=== PATIENT | male | born 1945 | race Caucasian/White ===

== ENCOUNTER → 2019-01-08 | Outpatient (CLI) | payer MEDICARE ==
[~2019-01-08] MED LIST: 00186-0370-20 IH; 00186-0372-20 IH; ADVIL200 MG PO; CARDURA 2MG2 MG PO; FERROUS SU325 MG/TAB PO; GLUCOSAMINE & C1 CA1 PO; IMODIUM 2MG CAPS2 MG PO; MULTIPLE VITAMI1 CAP PO; PRIL40 PO; PRILOSEC 20MG20 MG
== END ==
LOC: COL.PUL 07:44
DX: J44.9 Chronic obstructive pulmonary disease, unspecified (principal)

== ENCOUNTER 2020-01-25 10:05 | Inpatient (IN) | payer MEDICARE ==
[~2020-01-25] VITALS: Ht 193 cm; Wt 114.9 kg
[2020-01-25] VITALS (9 sets, daily range): BP systolic 96–146; BP diastolic 50–87; PULSE 50–91; TEMP 97.7–98.6
[2020-01-25] MEDS ORDERED: VITAMIN B COMPL1 SGL PO (10:35)
[2020-01-25] MEDS ORDERED: FIBERCON PO (10:35)
[2020-01-25] MEDS ORDERED: HYGROTON 2525 MG/TAB PO (10:36)
--- NOTE | 2020-01-25 14:25 | NUR ---
PATIENT ADMITED INTO ROOM 343 POST OP TURP. A&O. VSS. DENIES PAIN. DIOR TO DD WITH MOD AMOUNTS OF CLEAR PALE YELLOW URINE. CBI INFUSING AT MOD RATE. IV FLUIDS INFUSING INTO LEFT WRIST. NO C/O N/V. LIQUIDS AT BEDSIDE. HEAD TO TOE ASSESSMENT WNL. SCD'S TO BLE. ORIENTED TO ROOM. CALL LIGHT IN REACH. AT BEDSIDE.
--- NOTE | 2020-01-25 19:00 | NUR ---
PATIENT REPORTS HE FEELS LIKE HE MAY NEED TO VOID. DIOR DRAINGING SLOWLY WITH CBI INFUSING AT MOD RATE. URINE IS NOW BLOODY. IRRIGATED WITH 40CC AND WAS ABLE TO EASILY GET 40CC BACK OUT AND URINE RETURN. NO CLOTS NOTED. DIOR DRAINING WELL WITH RED URINE NOTED. CBI INFUSING AT MOD RATE AGAIN. CAMPGROUND CLEANING ATTENDANT TAKING OVER.
--- NOTE | 2020-01-25 21:00 | NUR ---
Pt taking fluids well, IVF capped. Denies pain. Has SL to left inner wrist, flushes well. Refuses Colace, did stand at bedside to ease lower back discomfort. Godoy cares provided after returning to bed.
[2020-01-26] VITALS (11 sets, daily range): BP systolic 86–142; BP diastolic 44–74; PULSE 80–101; TEMP 97.6–98.6
--- NOTE | 2020-01-26 03:18 | NUR ---
PT COMPLAINED OF FEELING FULL IN HIS BLADDER, HAND IRRIGATED, NO CLOTS RETURNED. DID DEFLATE DIOR BALLOON AND IRRIGATE, FLOW WAS GOOD, REINFLATED BALLOON. URINE REMAINS WILKINS RED. PT ALSO COMPLAINED OF DIZZINESS, STARTED IVF AT THIS TIME. B/P 111/65. AT THIS TIME DIOR IS DRAINING WELL. WILL MONITOR FOR CHANGES.
--- NOTE | 2020-01-26 05:00 | NUR ---
DIOR DRAINING LIGHT WATERMELON COLOR NOW. IVF CONTINUE PT REPORTS DIZZINESS WHEN SITTING UP. DENIES PAIN.
--- NOTE | 2020-01-26 08:47 | NUR ---
PT HAS CBI RUNNING. OUTPUT FRUIT PUNCH COLOR WITH FEW CLOTS. PT STATES NO PAIN AT THIS TIME. DIOR EMPTIED. IRRIGATION BAGS CHECKED. WILL CONTIUE TO MONITOR.
--- NOTE | 2020-01-26 10:45 | NUR ---
ordered to instill 250mls into bladder with clamped regalado, removed regalado, and measeure/observe the next 6 urinations. Pt updated on plan. NS instilled and regalado clamped. Regalado removed. Pt stood to use the urinal and became dizzy. Pt placed back in bed and boosted. BP checked and showing 114/62. still on floor and updated. IVF fluids restarted. Labs ordered. Pt instructed to call and not get up alone. Bedalarm active. Nurse aid notified. Lab notified. Will continue to monitor.
--- NOTE | 2020-01-26 11:13 | NUR ---
PT SAT UP SIDE OF BED TO USE THE URINAL. PT'S BP SUPINE WAS 130/73 BUT WHILE SITTING 89/67. PT ABLE TO VOIDE SMALL AMOUNT OF VERY BLOODY URINE. LAB BEDSIDE TO DRAW. BED ALARM REACTIVATED. WILL CONTINUE TO MONITOR.
[2020-01-26 12:27] LABS: CALCIUM 8.5 mg/dL (8.4-10.2); CREATININE, serum 1.15 (0.66-1.25); HEMOGLOBIN 10.3 g/dl (13.5-18.0); MEAN CELL VOLUME 107 fl (80.0-100.0); MEAN CORPUSCULAR HEMOGLOBIN 38 pg (27.0-31.0); MEAN CORPUSCULAR HGB CONC 35 g/dl (33.0-37.0); MEAN PLATELET VOLUME 10.8 fl (7.4-10.4); PLATELET COUNT 239 K/mm3 (130-400); POTASSIUM 3.3 mmol/L (3.4-5.0); RED BLOOD COUNT 2.73 M/mm3 (4.20-5.60); REDCELL DISTRIBUTION WIDTH-CV 14.1 % (11.5-14.5)
[2020-01-26 12:35] LABS: HEMATOCRIT 29.3 % (42.0-52.0)
--- NOTE | 2020-01-26 12:40 | NUR ---
SPOKE WITH REGARDING PT'S LABS AND ORTHOSTATIC HYPOTENTION. WILL GIVE 1L BOLUS OF NS. ALSO DISCUSSED PT HAS ONLY VOIDED ABOUT 100ML AFTER DIOR DC. WILL CONTINUE TO MONITOR.
--- NOTE | 2020-01-26 13:16 | NUR ---
Plan: To return home in [place] with Swathi . Assessment: SW met with patient about care plan. Patient reports that his Swathi supports him. Patient reports that his PCP is Dr. Spike Burrell. Patient reports that he has a physical next month. Patient shares that he obtains his medications from [facility]. Patient shares that he use a cane for mobility and a CPAP nightly. Patient's POA is , verbally. Patient reports that they carrasqu[place] not have a DPOA form but she knows his wishes. Patient denies having any need for home health services. Action: Educated on resources available to them. Will continue to follow care.
--- NOTE | 2020-01-26 15:45 | NUR ---
ORTHOSTATIC VITALS STILL POSITIVE. HR INCREASED FROM 85 SUPINE TO 111 WHILE STANDING. PT BECAME DIZZY WHILE STANDING. NOTIFIED. ORDERS RECEIVED TO START LR AT 65ML/HR. BLADDER SCAN PT IF HE BECOMES UNCOMFORTABLE. IF RESULT IS GREATER THAN 300 NOTIFY PHYSICIAN.
--- NOTE | 2020-01-26 16:43 | NUR ---
PT BLADDER SCANNED WITH A RESULT OF 363. PT STATES HE WANTS TO TRY AND VOIDE AGAIN AFTER DINNER. WILL BLADDER SCAN AGAIN AFTER AND WILL NOTIFY IF GREATER THAN 300ML.
--- NOTE | 2020-01-26 17:32 | NUR ---
BASSEM RAMON REGARDING PTS BLADDER SCAN RESULT OF 693. ORDER TO PLACE A 3 WAY 18F DIOR AND MANUALLY IRRIGATE. ORDER TO IRRIGATE PRN. IF IT BECOMES OCCLUDED OR LARGE NUMBER PLEASE NOTIFY HIM AND WE MIGHT HAVE TO START CBI.
--- NOTE | 2020-01-26 18:37 | NUR ---
[address] DIOR [address]ED[address] WITH BLOODY URINE RETURNED. DIOR MANUALLY IRRIGATED. NO CLOTS NOTED. DIOR DRAINED 950 GROSS BLODDY URINE. PT STATES HE FEEL BETTER. WILL CONTINUE TO MONITOR.
--- NOTE | 2020-01-26 20:30 | NUR ---
PT IN BED, HAS CPAP ON. DIOR DRAINING BLOODY URINE, DENIES FULLNESS IN BLADDER, CATHETER CARES PROVIDED. IVF INFUSING TO RIGHT AC, NO REDNESS OR SWELLING NOTED. WILL MONITOR FOR CHANGES.
[2020-01-27] VITALS (12 sets, daily range): BP systolic 95–159; BP diastolic 40–68; PULSE 71–92; TEMP 97.4–98.5
--- NOTE | 2020-01-27 05:30 | NUR ---
CATHETER HAS DRAINED BLOODY URINE THIS SHIFT. HAND IRRIGATED FOR RETURN OF MANY SMALL NON OBSTRUCTING CLOTS. PT DENIED FULLNESS IN HIS BLADDER AND CATHETER HAS DRAINED ALL NIGHT WITHOUT SPASMS OR PROBLEM.
--- NOTE | 2020-01-27 06:45 | NUR ---
RESTARTED CBI PER DR MCCABE ORDER. ORDERS FOR LAB AND NPO GIVEN WELL.
--- NOTE | 2020-01-27 07:00 | NUR ---
PT REPORTS FEELING LIKE HIS BLADDER IS FULL, HAND IRRIGATED FOR RETURN OF NUMEROUS SMALL CLOTS, FLOW RETURN AFTER IRRIGATING.
[2020-01-27 08:12] LABS: MEAN CELL VOLUME 108 fl (80.0-100.0); MEAN CORPUSCULAR HGB CONC 35 g/dl (33.0-37.0); MEAN PLATELET VOLUME 10.8 fl (7.4-10.4); PLATELET COUNT 188 K/mm3 (130-400); REDCELL DISTRIBUTION WIDTH-CV 14.3 % (11.5-14.5)
[2020-01-27 08:30] LABS: HEMATOCRIT 23.7 % (42.0-52.0); HEMOGLOBIN 8.3 g/dl (13.5-18.0); MEAN CORPUSCULAR HEMOGLOBIN 38 pg (27.0-31.0)
--- NOTE | 2020-01-27 08:35 | NUR ---
Patient noted to have minimal regalado output. Hand irrigation completed-clots retreived. Patietn bladder pressure relieved. Patietn remains Npo, Regalado care provided.
--- NOTE | 2020-01-27 09:15 | NUR ---
rounded. Orders obtained, plans for Or.
[2020-01-27 09:36] LABS: BAND 6 % (0-10); LYMPHOCYTE 6 % (20.0-51.0); NEUTROPHILS 82 % (42.0-75.2); PLATELET ESTIMATE NORMAL (NORMAL)
[2020-01-27 09:38] LABS: HYPOCHROMIA 1+
--- NOTE | 2020-01-27 19:30 | NUR ---
Patient has done well post operativly. Cbi yellow & clear some reddness noted after his walk in the halls, but it cleared nicely. Patient did have dyspnea with exertion. He reports this is his normal. Vss on room air. he has tolerated food, no n/v. He denies pain. Scds. Report to Monique night nurse
--- NOTE | 2020-01-27 22:00 | NUR ---
PT IN BED WITH CPAP ON. DIOR TO BSD WITH CBI RUNNING AT SLOW RATE, URINE IS YELLOW. CATHETER CARES PROVIDED. DENIES PAIN. OFFERS NO NEEDS AT THIS TIME.
[2020-01-28] VITALS: BP 134/94; PULSE 77; TEMP 98.8
[2020-01-28 04:59] VITALS: BP 112/51; PULSE 73; TEMP 98.6
--- NOTE | 2020-01-28 06:00 | NUR ---
Urine has remained yellow, CBI clamped.
[2020-01-28 06:23] LABS: MEAN CELL VOLUME 108 fl (80.0-100.0); MEAN CORPUSCULAR HGB CONC 35 g/dl (33.0-37.0); MEAN PLATELET VOLUME 10.6 fl (7.4-10.4); PLATELET COUNT 182 K/mm3 (130-400); RED BLOOD COUNT 2.07 M/mm3 (4.20-5.60); REDCELL DISTRIBUTION WIDTH-CV 14.3 % (11.5-14.5)
[2020-01-28 06:34] LABS: HEMATOCRIT 22.3 % (42.0-52.0); HEMOGLOBIN 7.7 g/dl (13.5-18.0); MEAN CORPUSCULAR HEMOGLOBIN 37 pg (27.0-31.0)
[2020-01-28 07:59] VITALS: BP 109/74; PULSE 65; TEMP 97.8
--- NOTE | 2020-01-28 10:15 | NUR ---
ESTELLE ROUNDED, SEE ORDERS FOR P&P. PATIENT PRIMED WITH 250CC OF CBI AND DIOR DC'D PER ORDERS. NOTED 1300CC OF CLEAR YELLOW URINE. PATIENT STARTED ON 6 CUP ROUTINE. WILL MONITOR.
--- NOTE | 2020-01-28 10:50 | NUR ---
PATIENT WAS ABLE TO VOID 400CC OF CLEAR YELLOW URINE POST DIOR REMOVAL WITHOUT DIFFICULTY.
[2020-01-28 12:06] VITALS: BP 123/47; PULSE 80; TEMP 97.5
--- NOTE | 2020-01-28 12:30 | NUR ---
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
--- NOTE | 2020-01-28 14:45 | NUR ---
PATIENT HAS COMPLETED 6 CUP ROUTINE. URINE IS CLEAR, THOMAS, AND WITHOUT CLOTS. PATIENT HAS NOT HAD ANY DIFFICULTY WITH VOIDING. AWAITING DISCHARGE FROM UROLOGY.
--- NOTE | 2020-01-28 16:00 | NUR ---
PATIENT DISCHARGING HOME VIA WC TO PERSONAL VEHICLE WITH . GAVE DISCHARGE INSTRUCTIONS, F/U APT AND ANSWERED QUESTIONS/CONCERNS. DC'D RIGHT AC IV, COVERED SITE WITH GAUZE & COBAN. PATIENT DRESSED AND PACKED FOR DISCHARGE.
== END 2020-01-28 16:00 | disposition home or self-care (01) | DRG 666 ==
LOC: SDCO 10:05 → SURG 14:25 → SDCO 01-27 09:55 → SURG 01-27 09:55
PROVIDERS: Urology; ADMIT Family Medicine
PROC: 0V508ZZ Destruction of Prostate, Via Natural or Artificial Opening Endoscopic (ICD-10-PCS; principal; 2020-01-27 10:15)
PROC: 0TCB8ZZ Extirpation of Matter from Bladder, Via Natural or Artificial Opening Endoscopic (ICD-10-PCS; 2020-01-27 10:15)
DX: R31.0 Gross hematuria (principal); D62 Acute posthemorrhagic anemia; N40.1 Benign prostatic hyperplasia with lower urinary tract symptoms; Z20.828 Contact with and (suspected) exposure to other viral communicable diseases; G47.33 Obstructive sleep apnea (adult) (pediatric); G43.909 Migraine, unspecified, not intractable, without status migrainosus; K21.9 Gastro-esophageal reflux disease without esophagitis; M19.90 Unspecified osteoarthritis, unspecified site
CPT/HCPCS: OP; J0690; J1100; J2250; J2405; J2704; J3010; J3480; J7030; J7120

== ENCOUNTER → 2020-03-06 | Outpatient (CLI) | payer MEDICARE ==
[~2020-03-06] MED LIST changes: +FIBERCON PO; +HYGROTON 2525 MG/TAB PO; +VITAMIN B COMPL1 SGL PO
== END ==
LOC: COL.PUL 02-28 08:00
DX: I08.1 Rheumatic disorders of both mitral and tricuspid valves (principal)

== ENCOUNTER → 2021-07-31 | Outpatient (CLI) | payer MEDICARE | LOC: COL.VAS 11:55 | DX: Z12.2 Encounter for screening for malignant neoplasm of respiratory organs (principal); J44.9 Chronic obstructive pulmonary disease, unspecified; Z87.891 Personal history of nicotine dependence ==

== ENCOUNTER 2023-02-25 13:00 | Inpatient (IN) | payer MEDICARE ==
[~2023-02-25] VITALS: Ht 193 cm; Wt 113.7 kg
[2023-03-15] VITALS (10 sets, daily range): BP systolic 112–153; BP diastolic 58–75; PULSE 63–80; TEMP 97.4–98
[2023-03-15] MEDS ORDERED: TRELEGY ELLIPT1 EACH IH (10:48)
[2023-03-15] MEDS ORDERED: VENTOLIN0.09 MG IH (10:48)
[2023-03-15] MEDS ORDERED: HYGROTON 2525 MG/TAB PO (10:49)
[2023-03-15] MEDS ORDERED: CLARITIN-D 10 M1 T24 PO (10:50)
[2023-03-15] MEDS ORDERED: PRILOTC (10:51)
[2023-03-15 11:22] LABS: HEMOGLOBIN 11.7 g/dl (13.5-18.0); MEAN CELL VOLUME 103 fl (80.0-100.0); MEAN CORPUSCULAR HEMOGLOBIN 37 pg (27-31); MEAN CORPUSCULAR HGB CONC 36 g/dl (33.0-37.0); PLATELET COUNT 276 K/mm3 (130-400); RED BLOOD COUNT 3.13 M/mm3 (4.20-5.60)
[2023-03-15 11:29] LABS: CALCIUM 9.9 mg/dL (8.4-10.2); CREATININE, serum 1.55 mg/dL (0.72-1.25); POTASSIUM 3.3 mmol/L (3.5-4.5)
[2023-03-15 11:34] LABS: HEMATOCRIT 32.1 % (42.0-52.0)
[2023-03-15 11:39] LABS: ANISOCYTOSIS 1+; BAND 15 % (0-10); EOSINOPHIL 1 % (0-4); LYMPHOCYTE 19 % (20.0-51.0); NEUTROPHILS 51 % (42.0-75.2); PLATELET ESTIMATE NORMAL (NORMAL)
[2023-03-15] MEDS ORDERED: COLACE 100100 MG/CAP PO (15:24)
[2023-03-15] MEDS ORDERED: NORCO 325 MG-51 TAB PO (15:24)
--- NOTE | 2023-03-15 16:15 | NUR ---
REPORT RECEIVED FROM PACU NURSE. PT UP TO FLOOR AT THIS TIME. PT RESTING IN BED WITH PAIN 2/10 IN ABDOMEN, VITALS STABLE, A/O X4, FAMILY AT BEDSIDE, 5 LAP SITES AND 1 INCISION CLEAN, DRY, INTACT, AND OPEN TO AIR. WILL CONTINUE TO MONITOR.
[2023-03-15] MEDS ORDERED: KLOR-CON 88 ME1 PO (16:33)
--- NOTE | 2023-03-15 20:30 | NUR ---
PT IN BED, IS ALERT AND ORIENTED X4. HAS INT TO LAC. DIOR TO BSD WITH TEA COLORED URINE, DRINKING WELL. ROBOTIC SITES X5 DRY/GLUED AND SMALL MIDLINE INCISION GLUED AND DRY. ABD DISTENDED, BOWEL SOUNDS NOTED. HAS AMBULATED IN HALLWAY WITH STAFF.
--- NOTE | 2023-03-15 22:24 | NUR ---
SCHEDULED ES TYLENOL GIVEN. PT HAS HOME CPAP ON.
[2023-03-16] VITALS (7 sets, daily range): BP systolic 111–127; BP diastolic 56–86; PULSE 81–84; TEMP 97.8–98.5
--- NOTE | 2023-03-16 04:20 | NUR ---
PT SLEEPING, URINE HAS CLEARED. DID NOT AWAKEN FOR ES TYLENOL.
--- NOTE | 2023-03-16 05:53 | NUR ---
SCHEDULED AM MED GIVEN. PT ASSISTED TO SIDE OF BED, COFFEE GIVEN. DIOR OUTPUT IMPROVED OVERNIGHT.
[2023-03-16 06:50] LABS: HEMOGLOBIN 11.4 g/dl (13.5-18.0)
[2023-03-16 06:51] LABS: HEMATOCRIT 32.2 % (42.0-52.0)
[2023-03-16 07:04] LABS: CALCIUM 9.6 mg/dL (8.4-10.2); CREATININE, serum 2.04 mg/dL (0.72-1.25); POTASSIUM 3.7 mmol/L (3.5-4.5)
--- NOTE | 2023-03-16 07:10 | NUR ---
Awake and alert. Denies pain and VSS. INT in left forearm CDI. Drinking fluids and ordered breakfast. Godoy catheter intact and draining clear yellow urine. Call light in reach.
--- NOTE | 2023-03-16 08:15 | NUR ---
pt resting comfortably in bed, tolerated breakfast. vss. pt denies pain. pt abdomen distended but soft, reports being distended "all the time." bowel sounds are active and pt reports passing gas. x5 lap and 1 midline incisions are cdi. regalado to dd w dark yellow urine output. encouraged pt to ambulate more, pt in agreement. no needs at this time. call light in reach.
--- NOTE | 2023-03-16 09:00 | NUR ---
Ambulated without complaints of pain or discomfort. Shift assessment completed, lung sounds clear bilaterally. Hypoactive bowels with minimal flatulence. Abdominal incisions x5 dry and intact with no redness. IV in left forearm CDI. Godoy catheter intact and draining clear yellow urine. Sitting with family and call light provided.
--- NOTE | 2023-03-16 10:20 | NUR ---
Initial visit; Patient thanked Ultrasonic Seaming Machine Operator for looking in on him and offering God's blessings. Ultrasonic Seaming Machine Operator wished him well.
--- NOTE | 2023-03-16 11:10 | NUR ---
Event Services Manager met with Patient and family at bedside to conduct Care Managment Assessment and discuss discharge plannning. Patient lives in [place], [place] wit his and is established with YARIEL Ferris for primary care. Patient is covered by [facility] and Anastasiia Machado for insurance. Purvi requests discharge medications be sent to [facility]. Patient endorses CPAP prior to admission and has on hand for use during admission. Nuvia reports independency with ADL/IADLs prior to admission and states that his DPOAHC is his . Purvi is anticipated to discharge home when medically ready. Discharge Plan: Home.
--- NOTE | 2023-03-16 13:15 | NUR ---
left ac INT discontinued. leg bag teaching provided to pt and family. discharge instructions given, all questions answered. escorted pt to personal vehicle by wheelchair.
== END 2023-03-16 13:15 | disposition home or self-care (01) | DRG 658 ==
LOC: SURG 03-15 07:30 → INPTSU 03-15 10:02 → SURG 03-15 10:02
PROVIDERS: ADMIT Urology
PROC: 0TB64ZZ Excision of Right Ureter, Percutaneous Endoscopic Approach (ICD-10-PCS; 2023-03-15)
PROC: 8E0W4CZ Robotic Assisted Procedure of Trunk Region, Percutaneous Endoscopic Approach (ICD-10-PCS; 2023-03-15)
PROC: 0TT04ZZ Resection of Right Kidney, Percutaneous Endoscopic Approach (ICD-10-PCS; principal; 2023-03-15 12:15)
DX: C65.1 Malignant neoplasm of right renal pelvis (principal); I10 Essential (primary) hypertension; J44.9 Chronic obstructive pulmonary disease, unspecified; G47.33 Obstructive sleep apnea (adult) (pediatric); K21.9 Gastro-esophageal reflux disease without esophagitis; D64.9 Anemia, unspecified; M19.90 Unspecified osteoarthritis, unspecified site; F32.A Depression, unspecified; G43.909 Migraine, unspecified, not intractable, without status migrainosus; J31.0 Chronic rhinitis; J84.10 Pulmonary fibrosis, unspecified; J43.9 Emphysema, unspecified; N40.1 Benign prostatic hyperplasia with lower urinary tract symptoms; R31.0 Gross hematuria; Z96.649 Presence of unspecified artificial hip joint; Z99.89 Dependence on other enabling machines and devices; Z88.0 Allergy status to penicillin; Z88.8 Allergy status to other drugs, medicaments and biological substances; Z98.52 Vasectomy status
CPT/HCPCS: A4314; J0690; J1100; J1170; J1650; J2405; J2704; J2795; J3010; J7120

== ENCOUNTER 2023-04-30 12:57 | Outpatient (RCR) | payer MEDICARE ==
[2023-04-30] VITALS (10 sets, daily range): BP systolic 121–147; BP diastolic 43–79; PULSE 68–83; TEMP 96.6–98.1
[~2023-04-30 12:57] MED LIST changes: +CLARITIN-D 10 M1 T24 PO; +COLACE 100100 MG/CAP PO; +KLOR-CON 88 ME1 PO; +KLOR-CON M1010 MEQ PO; +NORCO 325 MG-51 TAB PO; +PRILOTC; +TRELEGY ELLIPT1 EACH IH; +VENTOLIN0.09 MG IH
--- NOTE | 2023-04-30 13:29 | NUR ---
1305-Pt arrived from home for blood transfusion. PT is AXOX4. Pt is ambulating independently and is on RA. bedside. Pt has a Right chest infusaport. Pt and unsure of type of port or neddle size. 1320-Old charts reviewed. Port accessed with 1in needle. Labs drawn and sent down.
--- NOTE | 2023-04-30 17:40 | NUR ---
PATIENT AWAKE AND ALERT, SITTING UP IN RECLINER. 2ND UNIT OF BLOOD TRANSFUSING. RN IN ROOM FIRST 15MIN. PATIENT TOELRATING WELL, DENEIS ANY S/S OF TRANSFUSION REACTION. VSS. CALL LIGHT WITHIN REACH. PATIENTS AT BEDSIDE.
--- NOTE | 2023-04-30 20:00 | NUR ---
Second unit of blood transfused without complications. VS WNL. Pt is feeling well. Chest port was flushed. A repeat H&H will be drawn shortly.
[2023-04-30 20:43] LABS: HEMOGLOBIN 8.3 g/dl (13.5-18.0)
--- NOTE | 2023-04-30 20:43 | NUR ---
Repeat H&H was obtained. Port was flushed with 20 ml of NS and 2.5 ml of Heparin per order. Port was deaccessed and a dressing was placed over the site. No complications at the site noted. Pt was escorted out of the building by staff in a wheelchair and accompanied by his .
== END 2023-04-30 21:00 | disposition home or self-care (01) ==
LOC: EUO 12:57
PROVIDERS: Internal Medicine
DX: C65.1 Malignant neoplasm of right renal pelvis (principal); D64.9 Anemia, unspecified
CPT/HCPCS: J1644; J7050; P9016

== ENCOUNTER 2023-05-20 08:45 | Outpatient (RCR) | payer MEDICARE ==
[~2023-05-20] VITALS: Ht 193 cm; Wt 114.5 kg
[2023-05-20] VITALS (9 sets, daily range): BP systolic 132–152; BP diastolic 58–73; PULSE 63–68; TEMP 97.4–98.1
[2023-05-20] MEDS ORDERED: COLACE 100100 MG/CAP PO (09:33)
[2023-05-20] MEDS ORDERED: VITAMIN B COMPL1 SGL PO (09:34)
[2023-05-20] MEDS ORDERED: GLUCOSAMINE & C1 CA2 PO (09:35)
--- NOTE | 2023-05-20 13:15 | NUR ---
Port was flushed and deaccessed. Site covered with bandaid. Pt assisted out using isolation procedures to ED entrance. Pt tolerated transfusions without issue. He was free of complaints and respirations remained even and unlabored at discharge.
== END 2023-05-20 13:15 | disposition home or self-care (01) ==
LOC: EUO 08:45
DX: C65.1 Malignant neoplasm of right renal pelvis (principal); U07.1 COVID-19
CPT/HCPCS: J1644; J7050; P9040

== ENCOUNTER 2023-06-15 13:00 | Outpatient (RCR) | payer MEDICARE ==
[2023-06-15] VITALS (9 sets, daily range): BP systolic 122–150; BP diastolic 57–81; PULSE 70–78; TEMP 97.4–97.9
[~2023-06-15] VITALS: Ht 193 cm; Wt 117.0 kg
[~2023-06-15 13:00] MED LIST changes: +Acetaminophen 325 MG TAB PO SCH; +GLUCOSAMINE & C1 CA2 PO; +NS 250 ML IV SCH; +diphenhydrAMINE 25 MG CAP PO SCH
[2023-06-15] MEDS ORDERED: MOTRIN 200200 MG/TAB PO (13:21)
--- NOTE | 2023-06-15 14:47 | NUR ---
report given to Mackenzie MOONEY, pt up in chair, uses computer, no c/o
--- NOTE | 2023-06-15 17:28 | NUR ---
pt tolerated blood infusion well, vs remained within normal limits, port deaccessed and heparinized. pt assisted to main lobby via wheelchair and was free from acute concerns and complaints at time of discharge.
== END 2023-06-15 17:29 | disposition home or self-care (01) ==
LOC: EUO 13:00
DX: C65.1 Malignant neoplasm of right renal pelvis (principal)
CPT/HCPCS: J1644; J7050; P9040

== ENCOUNTER 2023-07-01 10:40 | Outpatient (RCR) | payer MEDICARE ==
[2023-07-01] VITALS (9 sets, daily range): BP systolic 110–154; BP diastolic 51–82; PULSE 69–79; TEMP 97.4–98.1
[~2023-07-01 10:40] MED LIST changes: -Acetaminophen 325 MG TAB PO SCH; +MOTRIN 200200 MG/TAB PO; -NS 250 ML IV SCH; -diphenhydrAMINE 25 MG CAP PO SCH
[2023-07-01] MEDS ORDERED: NS 250 ML IV SCH (12:00)
[2023-07-01] MEDS ORDERED: diphenhydrAMINE 25 MG CAP PO SCH (12:00)
[2023-07-01] MEDS ORDERED: Acetaminophen 325 MG TAB PO SCH (12:00)
[2023-07-01] MEDS ORDERED: STOOL SOFTENER100 M2 PO (14:05)
== END 2023-07-01 18:09 | disposition home or self-care (01) ==
LOC: EUO 10:40
DX: C65.1 Malignant neoplasm of right renal pelvis (principal); D64.9 Anemia, unspecified
CPT/HCPCS: J1644; J7050; P9040

== ENCOUNTER 2023-07-08 13:18 | Outpatient (RCR) | payer MEDICARE ==
[~2023-07-08] VITALS: Ht 193 cm; Wt 119.4 kg
[2023-07-08] VITALS (15 sets, daily range): BP systolic 102–164; BP diastolic 63–87; PULSE 67–82; TEMP 97.5–97.9
[~2023-07-08 13:18] MED LIST changes: +Acetaminophen 325 MG TAB PO SCH; +NS 250 ML IV SCH; +STOOL SOFTENER100 M2 PO; +diphenhydrAMINE 25 MG CAP PO SCH
--- NOTE | 2023-07-08 16:13 | NUR ---
This nurse was called into the pts room at 1555. Pt reported they noticed hives starting to form, they became itchy, and a rash formed. The platelets were stopped and the fluids were immediatley started. Blood bank was called about the reaction. The lab put in orders for a blood draw investigation and told the nurse to disconnect the platelets which were returned to blood bank. The reactions from the platelets were documented. Dr. Morales's office was notified of the reaction and orders were received for benadryl, solumederol, and once symptoms improved the pt was okay to discharge.
[2023-07-08] MEDS ORDERED: diphenhydrAMINE 50 MG/ML 1 ML VIAL IV ONE (16:30)
[2023-07-08] MEDS ORDERED: methylPREDNISolone Sod Succ 125 MG/2 ML VIAL IV ONE (16:30)
--- NOTE | 2023-07-08 17:06 | NUR ---
Checked on the pts symptoms about 30 mins after the benedryl and solumederol were given. Pt states they are feeling much better. Itching is more controlled, the hives that were present are no longer there, and the rash is no longer present. Discussed with the pt that we will monitor them for about 30 more minutes and if they are still feeling good we can discharge them home.
--- NOTE | 2023-07-08 17:45 | NUR ---
Checked on the pt at about 1725 to see how they were feeling. Stated they were feeling much better and ready to go. The rash and hives were still not present. Another set of vitals was taken and the Pts port was deaccessed after heparin was given. Pt exited the unit by wheelchair to wifes car.
== END 2023-07-08 17:29 | disposition home or self-care (01) ==
LOC: EUO 13:18
DX: C65.1 Malignant neoplasm of right renal pelvis (principal)
CPT/HCPCS: J1200; J1644; J2930; J7050; P9035; P9040

== ENCOUNTER 2024-01-02 22:22 | Inpatient (IN) | payer MEDICARE ==
[~2024-01-02] VITALS: Ht 193 cm; Wt 112.4 kg
[~2024-01-02 22:22] MED LIST changes: -Acetaminophen 325 MG TAB PO SCH; -NS 250 ML IV SCH; -diphenhydrAMINE 25 MG CAP PO SCH
[2024-01-02] MEDS ORDERED: NS 500 ML IV ONE ×2 (23:00→23:45)
[2024-01-02 23:06] LABS: MEAN CELL VOLUME 96 fl (80.0-100.0); MEAN CORPUSCULAR HGB CONC 34 g/dl (33.0-37.0); MEAN PLATELET VOLUME 9.6 fl (7.4-10.4); PLATELET COUNT 103 K/mm3 (130-400); RED BLOOD COUNT 2.87 M/mm3 (4.20-5.60); REDCELL DISTRIBUTION WIDTH-CV 14.2 % (11.5-14.5)
[2024-01-02 23:13] LABS: HEMATOCRIT 27.5 % (42.0-52.0); HEMOGLOBIN 9.2 g/dl (13.5-18.0); MEAN CORPUSCULAR HEMOGLOBIN 32 pg (27-31)
[2024-01-02 23:17] LABS: ALBUMIN 2.7 g/dL (3.4-4.8); BILIRUBIN,TOTAL 0.5 mg/dL (0.2-1.2); C-REACTIVE PROTEIN 10.92 mg/dL (0.00-0.50); CALCIUM 8.4 mg/dL (8.4-10.2); CREATININE, serum 2.11 mg/dL (0.72-1.25); POTASSIUM 3.2 mEq/L (3.5-4.5); TOTAL PROTEIN 5.7 g/dl (6.2-8.1)
[2024-01-02] MEDS ORDERED: cefTRIAXone 1 G in Water For Injection,Sterile 10 ML IV ONE (23:45)
[2024-01-02 23:53] LABS: BAND 1 % (0-10); LYMPHOCYTE 7 % (20.0-51.0); NEUTROPHILS 83 % (42.0-75.2); PLATELET ESTIMATE DECREASED (NORMAL)
[2024-01-03] VITALS (15 sets, daily range): BP systolic 81–162; BP diastolic 53–76; PULSE 56–109; TEMP 97.5–98.2
[2024-01-03] MEDS ORDERED: Enoxaparin 120 MG/0.8 ML SYRINGE SQ ONE (01:30)
[2024-01-03] MEDS ORDERED: LEVAQUIN 5500 MG/TA1 PO (01:59)
--- NOTE | 2024-01-03 03:15 | NUR ---
Patient admitted to room 353 brought up via wheelchair from ED. accompaning him. VS are 120/68 BP, Temp 97.7 16 RR, Pulse 78, O2 NC 2L 98%. patient is A&O x4. Oriented to room.
[2024-01-03] MEDS ORDERED: NORCO 325 MG-51 TAB PO (03:40)
[2024-01-03] MEDS ORDERED: NEURONTIN300 MG/CAP PO (03:41)
[2024-01-03] MEDS ORDERED: ZOLOFT 50MG50 MG PO (03:42)
[2024-01-03] MEDS ORDERED: PREDNISONE 5MG5 MG PO (03:44)
[2024-01-03] MEDS ORDERED: PREDNISONE20 MG PO (03:45)
[2024-01-03] MEDS ORDERED: Albuterol/Ipratropium 3 MG-0.5 MG/3 ML Neb Soln IH PRN (04:00)
[2024-01-03] MEDS ORDERED: LR 1,000 ML IV SCH (04:00)
[2024-01-03] MEDS ORDERED: dexAMETHasone 10 MG/ML VIAL IV ONE (04:30)
[2024-01-03 04:39] LABS: COLLECTION METHOD CLEAN CATCH
[2024-01-03] MEDS ORDERED: ALL DAY ALLERGY10 M3 PO (04:53)
[2024-01-03] MEDS ORDERED: ANTI-DIARRHEAL2 MG PO (04:54)
[2024-01-03] MEDS ORDERED: Doxycycline Hyclate 100 MG in NS 150 ML IV SCH (05:00)
[2024-01-03] MEDS ORDERED: *Potassium Replacement Protocol MC SCH (05:00)
[2024-01-03] MEDS ORDERED: Potassium Bicarbonate/Citrate 20 MEQ Effervescent TAB PO SCH (05:00)
[2024-01-03 05:08] LABS: PH 5.5 (5-8); URINE APPEARANCE Clear (CLEAR/HAZY); URINE BLOOD Negative (NEGATIVE); URINE COLOR Yellow (YELLOW); URINE GLUCOSE Negative (NEGATIVE); URINE KETONE Negative (NEGATIVE); URINE NITRATE Negative (NEGATIVE); URINE PROTEIN(semi-quant) TRACE (NEGATIVE)
[2024-01-03] MEDS ORDERED: Budesonide Neb Susp 0.5 MG/2 ML AMP IH SCH (07:00)
[2024-01-03] MEDS ORDERED: Omeprazole 20 MG **** subs to Pantoprazole 40 MG PO SCH (07:00)
--- NOTE | 2024-01-03 07:10 | NUR ---
Pt sitting up in bed. Trasferred to bathroom and back to bed. No further needs. Call light in reach and bed alarm on.
[2024-01-03] MEDS ORDERED: Albuterol/Ipratropium 3 MG-0.5 MG/3 ML Neb Soln IH SCH (08:00)
[2024-01-03] MEDS ORDERED: predniSONE 20 MG TAB PO SCH (08:00)
--- NOTE | 2024-01-03 08:29 | NUR ---
Pt sitting up in bed. A&Ox4. VSS. S1S2. Clear lungs on RA. Pt was WALDRON when getting up to the bathroom. O2: 95%. ABD round, soft, non-tender with audible bowel sounds. Palpable pulses in all extremities. Ecchymosis on Bilateral hands and forearms. Redness on LLL. Bilateral heels have dry skin. Pt refuses to remove pants, shirt, and socks. Unable to collect sputum culture. No further needs. Call light in reach and bed alarm on.
[2024-01-03] MEDS ORDERED: Loratadine 10 MG TAB PO SCH (09:00)
[2024-01-03] MEDS ORDERED: Gabapentin 300 MG CAP PO SCH ×2 (09:00→21:00)
[2024-01-03] MEDS ORDERED: Umeclidinium/Vilanterol 62.5-25 MCG INHALATION/INHALER IH SCH (09:00)
[2024-01-03] MEDS ORDERED: Fluticasone/Umeclidinium/Vilanterol **** subs to Budesonide + Umeclid/Vilant IH SCH (09:00)
[2024-01-03] MEDS ORDERED: Sertraline 50 MG TAB PO SCH (09:00)
--- NOTE | 2024-01-03 09:54 | NUR ---
mill worker met with pt to discuss discharge planning in the doorway due to isolation status. He reports to live with his , Swathi [phone] in [place]. He confirms his is DPOA-HC and SW verified this on file. He sees DANIELLE Ferris for PCP needs and obtains medications from [facility] with no difficulties. He is independent with ADLS and uses a CPAP and rolator for DME. He was informed PT/OT will meet with him to suggest any reccomendations. PT/OT pending Discharge Plan: tbd, home
--- NOTE | 2024-01-03 11:50 | NUR ---
Pt off floor for VQ Scan
--- NOTE | 2024-01-03 12:49 | NUR ---
Pt back from VQ Scan. Pt denies pain at this time. Call light in reach and bed alarm on.
[2024-01-03 13:29] LABS: CLOSTRIDIUM DIFF A/B NEG
[2024-01-03] MEDS ORDERED: Loratadine 10 MG TAB PO PRN (15:30)
[2024-01-03] MEDS ORDERED: Magnesium Sulfate 4% 50 ML IV ONE (19:45)
--- NOTE | 2024-01-03 20:30 | NUR ---
UPON SHIFT ASSESSMENT, PATIENT WAS IN BED AWAKE AND AXO X 4. PATIENT STILL WEARING JEANS AND BELT FROM NIGHT BEFORE ON ADMISSION, AND CONTINUES TO REFUSE TO REMOVE THEM. LABS RESULTED LOW MAG OF 1.2 AND CALL PLACED TO HOSPITALIST, CHIQUITA. TORB FOR 2G MAGNESIUM IV GIVEN. PATIENT NOTED TO HAVE WALDRON WHEN AMBULATING, HOWVEVER, O2 SAT WNL ON RA AT 95%. ALL OTHER VS ARE WNL. PATIENT APPEARS TO BE SLIGHTLY JAUNDICE-AST AND BILIRUBIN WNL. PATIENT CONTINUES TO REFUSE TO USE URINAL, CHARACTER OF VOID DIFFICULT TO OBSERVE, HOWEVER, PATIENT URINATING FREQUENTLY. PATIENT AFFECT SEEMS MORE IRRITATED AND TIRED FROM THE NIGHT OF ADMISSION. BY END OF ASSESSMENT, PATIENT PLACED HOME C-PAP, PULLED HAT OVER HIS HEAD AND WANTED TO SLEEP. STATED NO NEEDS. VS ARE WNL, TELE IS NS. BED ALARM ON.
[2024-01-04] VITALS (7 sets, daily range): BP systolic 116–125; BP diastolic 68–72; PULSE 76–96; TEMP 97.2–98.3
[2024-01-04 06:09] LABS: MEAN CELL VOLUME 94 fl (80.0-100.0); MEAN CORPUSCULAR HGB CONC 34 g/dl (33.0-37.0); MEAN PLATELET VOLUME 10.1 fl (7.4-10.4); PLATELET COUNT 96 K/mm3 (130-400); RED BLOOD COUNT 2.81 M/mm3 (4.20-5.60); REDCELL DISTRIBUTION WIDTH-CV 14.2 % (11.5-14.5)
[2024-01-04 06:24] LABS: CALCIUM 8.9 mg/dL (8.4-10.2); CREATININE, serum 1.68 mg/dL (0.72-1.25); MAGNESIUM 1.9 mg/dL (1.6-2.6); POTASSIUM 3.8 mEq/L (3.5-4.5)
[2024-01-04 06:25] LABS: HEMATOCRIT 26.5 % (42.0-52.0); MEAN CORPUSCULAR HEMOGLOBIN 32 pg (27-31)
[2024-01-04 07:07] LABS: BAND 7 % (0-10); LYMPHOCYTE 6 % (20.0-51.0); METAMYELOCYTE 1 % (0-0); NEUTROPHILS 82 % (42.0-75.2)
[2024-01-04 07:08] LABS: PLATELET ESTIMATE NORMAL (NORMAL)
[2024-01-04] MEDS ORDERED: Potassium Bicarbonate/Citrate 20 MEQ Effervescent TAB PO ONE (08:15)
--- NOTE | 2024-01-04 09:10 | NUR ---
Patient is resting in bed, alert and oriented x 4, VSS. at bedside. Pt states chronic pain in his right leg. Assessment completed, meds given. States no dizzines today but SOB continues. No further needs at this time. Call light within reach.
--- NOTE | 2024-01-04 10:19 | NUR ---
Call placed to ECHO rae to confirm ECHO done yesterday Echo was done. Call placed to Dr. Thomason to read Echo, he stated he will do it. Aware.
--- NOTE | 2024-01-04 16:58 | NUR ---
Patient was provided with discharge information, all questions answered. IV access and telemetry were discontinued.
[2024-01-04] MEDS ORDERED: cefTRIAXone 2 G in Water For Injection,Sterile 20 ML IV SCH (21:00)
== END 2024-01-04 16:45 | disposition home or self-care (01) | DRG 189 ==
LOC: COL.ER 22:22 → MEDICAL 01-03 01:59
PROVIDERS: Nurse Practitioner; Nurse Practitioner Family; ADMIT Internal Medicine
DX: J96.01 Acute respiratory failure with hypoxia (principal); C78.00 Secondary malignant neoplasm of unspecified lung; C79.51 Secondary malignant neoplasm of bone; J44.1 Chronic obstructive pulmonary disease with (acute) exacerbation; E87.20 Acidosis, unspecified; E87.1 Hypo-osmolality and hyponatremia; I95.1 Orthostatic hypotension; Z20.822 Contact with and (suspected) exposure to COVID-19; Z96.643 Presence of artificial hip joint, bilateral; G47.33 Obstructive sleep apnea (adult) (pediatric); N18.32 Chronic kidney disease, stage 3b; R79.89 Other specified abnormal findings of blood chemistry; E87.6 Hypokalemia; I12.9 Hypertensive chronic kidney disease with stage 1 through stage 4 chronic kidney disease, or unspecified chronic kidney disease; K52.9 Noninfective gastroenteritis and colitis, unspecified; D69.6 Thrombocytopenia, unspecified; I45.10 Unspecified right bundle-branch block; D64.9 Anemia, unspecified; G40.909 Epilepsy, unspecified, not intractable, without status epilepticus; Z88.6 Allergy status to analgesic agent; Z88.0 Allergy status to penicillin; Z88.8 Allergy status to other drugs, medicaments and biological substances; Z85.528 Personal history of other malignant neoplasm of kidney; Z79.899 Other long term (current) drug therapy; Z87.891 Personal history of nicotine dependence; Z87.440 Personal history of urinary (tract) infections; Z23 Encounter for immunization
CPT/HCPCS: A9540-JZ; A9567-JZ; J0696; J1100; J1650; J3475; J7040; J7120; J7512

== ENCOUNTER 2024-01-13 10:39 | Emergency (ER) | payer MEDICARE ==
[~2024-01-13] VITALS: Ht 193 cm; Wt 111.4 kg
[~2024-01-13 10:39] MED LIST changes: +ALL DAY ALLERGY10 M3 PO; +ANTI-DIARRHEAL2 MG PO; +LEVAQUIN 5500 MG/TA1 PO; +NEURONTIN300 MG/CAP PO; +PREDNISONE 5MG5 MG PO; +PREDNISONE20 MG PO; +ZOLOFT 50MG50 MG PO
[2024-01-13 10:40] VITALS: TEMP 98.6
[2024-01-13] MEDS ORDERED: Morphine 4 MG/ML VIAL IV PRN (11:00)
[2024-01-13] MEDS ORDERED: methylPREDNISolone Sod Succ 125 MG/2 ML VIAL IV ONE (11:00)
[2024-01-13] MEDS ORDERED: Albuterol/Ipratropium 3 MG-0.5 MG/3 ML Neb Soln IH ONE (11:00)
[2024-01-13] MEDS ORDERED: CLEOCIN HCL300 MG PO (11:13)
[2024-01-13] MEDS ORDERED: ULTRAM 50MG TAB50 MG PO (11:13)
[2024-01-13 11:25] LABS: ALBUMIN 2.8 g/dL (3.4-4.8); BILIRUBIN,TOTAL 0.8 mg/dL (0.2-1.2); CALCIUM 9.3 mg/dL (8.4-10.2); CREATININE, serum 1.96 mg/dL (0.72-1.25); POTASSIUM 4.3 mEq/L (3.5-4.5); TOTAL PROTEIN 5.9 g/dl (6.2-8.1)
[2024-01-13] MEDS ORDERED: ANTI-DIARRHEAL2 MG PO (11:28)
[2024-01-13] MEDS ORDERED: MOTRIN 800800 MG/TAB PO (11:28)
[2024-01-13] MEDS ORDERED: PRILOSEC 20MG20 MG PO (11:29)
[2024-01-13 11:30] LABS: TROPONIN-I 0.012 ng/mL (0.00-0.033)
[2024-01-13] MEDS ORDERED: ORAPRED ODT10 MG PO (11:33)
[2024-01-13 12:14] LABS: HEMATOCRIT 27.8 % (42.0-52.0); HEMOGLOBIN 8.9 g/dl (13.5-18.0); MEAN CELL VOLUME 97 fl (80.0-100.0); MEAN CORPUSCULAR HEMOGLOBIN 31 pg (27-31); MEAN CORPUSCULAR HGB CONC 32 g/dl (33.0-37.0); MEAN PLATELET VOLUME 9.7 fl (7.4-10.4); PLATELET COUNT 105 K/mm3 (130-400); RED BLOOD COUNT 2.86 M/mm3 (4.20-5.60); REDCELL DISTRIBUTION WIDTH-CV 15.2 % (11.5-14.5)
[2024-01-13 12:22] LABS: BAND 13 % (0-10); LYMPHOCYTE 4 % (20.0-51.0); NEUTROPHILS 81 % (42.0-75.2); PLATELET ESTIMATE DECREASED (NORMAL)
[2024-01-13 13:07] LABS: TSH w REFLEX 1.567 uIU/mL (0.350-4.940)
[2024-01-13 14:00] VITALS: BP 129/68; PULSE 88
== END 2024-01-13 14:15 | disposition home or self-care (01) ==
LOC: COL.ER 10:39 → MEDICAL 13:00 → COL.ER 13:00 → MEDICAL 14:26
PROVIDERS: Personal Emergency Response Attendant
DX: J44.9 Chronic obstructive pulmonary disease, unspecified (principal); C64.9 Malignant neoplasm of unspecified kidney, except renal pelvis; C78.00 Secondary malignant neoplasm of unspecified lung; C79.51 Secondary malignant neoplasm of bone; Z79.899 Other long term (current) drug therapy
CPT/HCPCS: J2270; J2919

== ENCOUNTER 2024-01-16 06:21 | Inpatient (IN) | payer MEDICARE ==
[~2024-01-16] VITALS: Ht 193 cm; Wt 111.4 kg
[2024-01-16] VITALS (8 sets, daily range): BP systolic 105–125; BP diastolic 47–68; PULSE 78–86; TEMP 97.3–97.7
[~2024-01-16 06:21] MED LIST changes: +CLEOCIN HCL300 MG PO; +MOTRIN 800800 MG/TAB PO; +ORAPRED ODT10 MG PO; +PRILOSEC 20MG20 MG PO; +ULTRAM 50MG TAB50 MG PO
[2024-01-16] MEDS ORDERED: methylPREDNISolone Sod Succ 125 MG/2 ML VIAL IV ONE (07:15)
[2024-01-16 07:20] LABS: MEAN CELL VOLUME 97 fl (80.0-100.0); MEAN CORPUSCULAR HGB CONC 32 g/dl (33.0-37.0); MEAN PLATELET VOLUME 10.2 fl (7.4-10.4); PLATELET COUNT 117 K/mm3 (130-400); RED BLOOD COUNT 3.14 M/mm3 (4.20-5.60); REDCELL DISTRIBUTION WIDTH-CV 15.2 % (11.5-14.5)
[2024-01-16 07:23] LABS: HEMATOCRIT 30.4 % (42.0-52.0); HEMOGLOBIN 9.7 g/dl (13.5-18.0); MEAN CORPUSCULAR HEMOGLOBIN 31 pg (27-31)
[2024-01-16 07:45] LABS: ANISOCYTOSIS 1+; BAND 7 % (0-10); LYMPHOCYTE 5 % (20.0-51.0); NEUTROPHILS 80 % (42.0-75.2); PLATELET ESTIMATE NORMAL (NORMAL)
[2024-01-16] MEDS ORDERED: Albuterol/Ipratropium 3 MG-0.5 MG/3 ML Neb Soln IH ONE (07:45)
[2024-01-16 07:46] LABS: BILIRUBIN,TOTAL 0.9 mg/dL (0.2-1.2); CALCIUM 9.5 mg/dL (8.4-10.2); CREATININE, serum 1.9 mg/dL (0.72-1.25); POTASSIUM 4.3 mEq/L (3.5-4.5); TOTAL PROTEIN 6.4 g/dl (6.2-8.1)
[2024-01-16 08:23] LABS: ARTERIAL BLD GAS O2 SATURATION 90.8 % (92-100); ARTERIAL BLD GAS TCO2 CT 18.9; ARTERIAL BLOOD GAS BASE EXCESS -2.7 (-2-2); ARTERIAL BLOOD GAS HCO3 18.3 meq/L (22-26); ARTERIAL BLOOD GAS pH 7.55 (7.35-7.45)
[2024-01-16 08:25] LABS: ARTERIAL BLOOD GAS PCO2 21.3 mmHg (35-45)
--- NOTE | 2024-01-16 09:49 | NUR ---
SW consulted to see patient in ED. Patient is in ED for second time in three days after discharge from hospital to home last week. Patient stating "I need oxygen." RN Carlos Eduardo and RT at bedside to complete 02 qualification walk. arrived during this time and stated "He needs oxygen". voiced not understanding why patient hasn't been provided with oxygen at home before now. SW explained qualifications to get home oxygen and patient has not met these qualifications. SW and physician met with patient and to discuss their wishes. Physician offering discharge with hospice. Patient stated "I don't need hospice yet, I'm not dying." SW explained that hospice is for anyone with a terminal diagnosis and not "Just for dying patient's." shared that patient is scheduled to start chemo tomorrow and patient stated he hasn't made decision to not receive chemo. Physician to consult hospitalist for possible admissio. Patient agreeable.
[2024-01-16] MEDS ORDERED: Acetaminophen 500 MG TAB PO PRN (11:00)
[2024-01-16] MEDS ORDERED: Albuterol/Ipratropium 3 MG-0.5 MG/3 ML Neb Soln IH PRN (11:00)
[2024-01-16] MEDS ORDERED: Ondansetron 4 MG/2 ML VIAL IV PRN (11:00)
[2024-01-16] MEDS ORDERED: Polyethylene Glycol 3350 17 GM PDS PO PRN (11:00)
--- NOTE | 2024-01-16 11:00 | NUR ---
Pt up to the floor recently from ED. Pt is awake and alert and oriented, spouse at bedside. Pt does not have any complaints of pain at this time. O2 per NC at 1L. Pt did scoot from ED cart to bed. He reported that he needed to use the restroom but did not think he could walk in to the bathroom. Assisted him to stand at bedside for him to use urinal. Pt does have a portacath which was accessed in the ED. Oriented pt to his room and educated on room service.
[2024-01-16] MEDS ORDERED: Doxycycline Monohydrate 100 MG CAP PO SCH (11:44)
[2024-01-16] MEDS ORDERED: NS 1,000 ML IV ONE (11:45)
[2024-01-16] MEDS ORDERED: Fluticasone/Umeclidinium/Vilanterol **** subs to Budesonide + Umeclid/Vilant IH SCH (11:54)
--- NOTE | 2024-01-16 12:30 | NUR ---
Pt doing okay at this time. He has had and tolerated general diet with no complaints. Educated pt on all new orders, no questions regarding those at this time. I did call Yecenia to inform her that pt and would like to see her at some point
[2024-01-16] MEDS ORDERED: Albuterol/Ipratropium 3 MG-0.5 MG/3 ML Neb Soln IH SCH (14:00)
--- NOTE | 2024-01-16 14:12 | NUR ---
TAWANNA met with patient and Swathi ([phone]) to complete initial assessment for discharge planning. Patient and verify that they live in [place], patient sees Josemanuel SANTOS as his PCP and he uses [facility]. Patient has walker, cane, shower chair, grab bars and CPAP at home. Patient states he was scheduled to start new round of chemo tomorrow but he is agreeable to hospice referral. Medicare.gov list of hospice providers provided. Questions related to hospice care answered. wants to call her friend to discuss hospice options and let TAWANNA Keene know their decision tomorrow morning. Discharge plan: Home with Hospice
--- NOTE | 2024-01-16 14:40 | NUR ---
Med rec completed, notified hospitalist for home meds to be reviewed
[2024-01-16] MEDS ORDERED: Sertraline 50 MG TAB PO SCH (15:07)
[2024-01-16] MEDS ORDERED: Omeprazole 20 MG **** subs to Pantoprazole 40 MG PO SCH (15:07)
[2024-01-16] MEDS ORDERED: traMADol 50 MG TAB PO PRN (15:15)
[2024-01-16] MEDS ORDERED: Heparin 5,000 UNITS/ML 1 ML VIAL SQ SCH (16:00)
--- NOTE | 2024-01-16 16:11 | NUR ---
REPORT RECEIVED ET CARE ASSUMED BY THIS NURSE AT 1500. PT RESTING IN BED AT THIS TIME, SITTING ON SIDE OF BED, ALERT, ORIENTED. PT'S MEDS ADJUSTED PER HIS REQUEST TO ALIGN WITH HOME DOSING ET TIMING. PT AMBULATED X1 ASSIST WITH WALKER TO BR WITHOUT DIFFICULTY. PT TAKING PILLS WHOLE WITH WATER WITHOUT DIFFICULTY. PT ORDERED MEAL TRAY, DENIES OTHER NEEDS, CALL LT IN REACH.
[2024-01-16] MEDS ORDERED: Gabapentin 300 MG CAP PO SCH (17:00)
--- NOTE | 2024-01-16 18:40 | NUR ---
PATIENT RESTING IN BED IN THE APPEARANCE OF SLEEP WITH TV OFF WITH NO FAMILY PRESENT WITH NO ACUTE DISTRESS NOTED. PATIENT ON ROOM AIR. NS INFUSING INTO RIGHT UPPER CHEST PORT-A-CATH WITH NO COMPLICATIONS NOTED. BEDSIDE REPORT COMPLETED WITH ANNY AT THIS TIME. BED IN LOW POSITION WITH WHEELS LOCKED WITH RAILS UP X3 AND CALL LIGHT WITHIN REACH. BED ALARM ON.
[2024-01-16] MEDS ORDERED: Budesonide Neb Susp 0.5 MG/2 ML AMP IH SCH (19:00)
--- NOTE | 2024-01-16 20:13 | NUR ---
PATIENT RESTING SITTING UP IN BED WITH TV ON WITH NO FAMILY PRESENT WITH NO ACUTE DISTRESS NOTED. PATIENT ON ROOM AIR. PORT-A-CATH TO RIGHT UPPPER CHEST INTACT WITH NO COMPLICATIONS NOTED. ASSESSMNET AND MEDICATION ADMINISTRATION COMPLETED AT THIS TIME. PATIENT TOLERATED WELL. PATIENT REQUESTED TO USE THE BATHROOM. PATIENT ASSISTED UP TO BATHROOM WITH ROLLATOR AND STAND BY ASSIST. PATIENT GAIT STEADY BUT SLOW. PATIENT VOIDED AND HAD BOWEL MOVEMENT. PATIENT PERFORMED OWN MYKEL CARE. PATIENT WALKED BACK TO BED AND REQUESTED TO SIT ON EDGE OF BED FOR A LITTLE WHILE. PATIENT DENIES ANY OTHER NEEDS. BED IN LOW POSITION WITH WHEELS LOCKED WITH RAILS UP X2 AND CALL LIGHT WITHIN REACH.
[2024-01-16] MEDS ORDERED: dexAMETHasone 10 MG/ML VIAL IV SCH ×2 (21:00)
[2024-01-16] MEDS ORDERED: DEXAMETHASONE IV SCH (21:00)
[2024-01-16] MEDS ORDERED: [UNRECOGNIZED DRUG - OTHER] IV SCH (21:00)
[2024-01-17] VITALS (11 sets, daily range): BP systolic 100–122; BP diastolic 52–66; PULSE 70–88; TEMP 96.7–98.3
[2024-01-17 07:28] LABS: MEAN CELL VOLUME 97 fl (80.0-100.0); MEAN CORPUSCULAR HGB CONC 33 g/dl (33.0-37.0); MEAN PLATELET VOLUME 10.5 fl (7.4-10.4); PLATELET COUNT 99 K/mm3 (130-400); RED BLOOD COUNT 2.62 M/mm3 (4.20-5.60); REDCELL DISTRIBUTION WIDTH-CV 14.7 % (11.5-14.5)
[2024-01-17 07:47] LABS: HEMATOCRIT 25.4 % (42.0-52.0); HEMOGLOBIN 8.3 g/dl (13.5-18.0); MEAN CORPUSCULAR HEMOGLOBIN 32 pg (27-31)
[2024-01-17 07:48] LABS: CALCIUM 9.2 mg/dL (8.4-10.2); CREATININE, serum 1.58 mg/dL (0.72-1.25)
[2024-01-17 08:10] LABS: BAND 10 % (0-10); LYMPHOCYTE 5 % (20.0-51.0); METAMYELOCYTE 1 % (0-0); NEUTROPHILS 81 % (42.0-75.2); PLATELET ESTIMATE NORMAL (NORMAL)
--- NOTE | 2024-01-17 08:20 | NUR ---
PATIENT ALERT AND ORIENTED X4. PATIENT ON ROOM AIR THIS MORNING. DENIES PAIN AT THIS TIME. PATIENT SITTING IN BED READING BOOK ON TABLET. DENIES SOA/ NASEA/ VOMITING. PATIENT SHIFT ASSESSMENT COMPLETED. CALL LIGHT WITHIN REACH. BED AT LOWEST POSITION. BED ALARM ON.
[2024-01-17] MEDS ORDERED: Umeclidinium/Vilanterol 62.5-25 MCG INHALATION/INHALER IH SCH (09:00)
--- NOTE | 2024-01-17 09:45 | NUR ---
TAWANNA met with patient and to discuss their choice for hospice provider. stated "I'm confused!". When asked, states that she was not present with attending rounded. She states patient informed her that attending told patient he can discharge to home and restart chemo. SW discussed visit with attending, Dr. Rodriguez, who stated patient did not inform him that they were considering hospice. TAWANNA met again with patient and . Patient stated he would like to talk with Dr. Morales to get his recommendation before agreeing to hospice. stated she would also like to talk with patient's PCP. SW informed them that they should have those appointments before talking with hospice. Both are agreeable. Dr. Rodriguez notified of patient's decision and stated patient will discharge to home tomorrow. Discharge plan: Home
--- NOTE | 2024-01-17 19:10 | NUR ---
PATIENT SITTING UP ON EDGE OF BED LOOKING AT PHONE WITH TV ON WITH NO FAMILY PRESENT WITH NO ACUTE DISTRESS NOTED. PATIENT ON ROOM AIR. PORT-A-CATH TO RIGHT UPPER CHEST INTACT WITH NO COMPLICATIONS NOTED. BEDSIDE SHIFT REPORT COMPLETED WITH RANCHO AT THIS TIME. PATIENT DENIES ANY NEEDS OTHER THAN WANTING A BEER. BED IN LOW POSITION WITH WHEELS LOCKED WITH RAILS UP X2 AND CALL LIGHT WITHIN REACH.
--- NOTE | 2024-01-17 20:13 | NUR ---
PATIENT SITTING ON EDGE OF BED LISTENING TO THE NEWS ON TV AND LOOKING AT CELL PHONE WITH NO FAMILY PRESENT WITH NO ACUTE DISTRESS NOTED. PATIENT ON ROOM AIR. PORT-A-CATH TO RIGHT UPPER CHEST INTACT WITH NO COMPLICATIONS NOTED. ASSESSMENT AND MEDICATION ADMINISTRATION COMPLETED AT THIS TIME. PATIENT TOLERATED WELL. PATIENT DENIES ANY NEEDS AT THIS TIME. BED IN LOW POSITION WITH WHEELS LOCKED WITH RAILS UP X2 AND CALL LIGHT WITHIN REACH.
--- NOTE | 2024-01-17 20:47 | NUR ---
PT PLACED ON NOC OX AT 2039. PT ON RA SATTING 98%. PT IS ALSO ON HIS CPAP.
--- NOTE | 2024-01-17 23:30 | NUR ---
PT STILL RA ON CPAP SATTING 96%.
[2024-01-18] VITALS: BP_SYST 118
[2024-01-18 04:13] VITALS: BP 100/57; PULSE 65; TEMP 97.6
[2024-01-18 04:20] VITALS: BP_SYST 100
[2024-01-18 06:44] LABS: MEAN CELL VOLUME 96 fl (80.0-100.0); MEAN CORPUSCULAR HGB CONC 33 g/dl (33.0-37.0); MEAN PLATELET VOLUME 10.3 fl (7.4-10.4); PLATELET COUNT 112 K/mm3 (130-400); REDCELL DISTRIBUTION WIDTH-CV 14.6 % (11.5-14.5)
[2024-01-18 06:45] LABS: HEMOGLOBIN 8.2 g/dl (13.5-18.0); MEAN CORPUSCULAR HEMOGLOBIN 32 pg (27-31)
[2024-01-18 07:02] LABS: CREATININE, serum 1.32 mg/dL (0.72-1.25); POTASSIUM 4.2 mEq/L (3.5-4.5)
[2024-01-18 07:39] VITALS: BP 119/66; PULSE 78; TEMP 97.8
--- NOTE | 2024-01-18 07:45 | NUR ---
PATIENT ALERT AND ORIENTED X4. SITTING IN BED FINISHING UP BREAKFAST. PATIENT REPORTS 4/10 PAIN TO KNEES.PATIENT ON ROOM AIR. PATIENT DENIES S0A, CHEST PAIN AT THIS TIME. CALL LIGHT WITHIN REACH. BED AT LOWEST POSITION.
[2024-01-18 07:46] LABS: BAND 17 % (0-10); METAMYELOCYTE 1 % (0-0)
[2024-01-18 07:47] LABS: LYMPHOCYTE 5 % (20.0-51.0); NEUTROPHILS 72 % (42.0-75.2)
[2024-01-18 07:48] LABS: HYPOCHROMIA 1+; PLATELET ESTIMATE DECREASED (NORMAL)
[2024-01-18 08:07] VITALS: BP_SYST 119
[2024-01-18] MEDS ORDERED: MONODOX100 PO (08:54)
[2024-01-18] MEDS ORDERED: PREDNISONE20 MG PO (08:55)
--- NOTE | 2024-01-18 10:40 | NUR ---
PATIENT DISCHARGE INSTRUCTIONS GIVEN. PATIENT VERBALIZED UNDESTANDING. PATIENT DENIES HAVING QUESTIONS OR CONERNS ABOUT NEW MEDICATIONS. PATIENT RIGHT UPPER CHEST DEACCESSED PER PROTOCOL. PATIENT TOLERATED IT WELL. PATIENT ESCORTED OUTOF UNIT BY PCT ORIENTEE AND ACCOMPANIED BY .
== END 2024-01-18 10:45 | disposition home or self-care (01) | DRG 189 ==
LOC: COL.ER 06:21 → MEDICAL 08:53
PROVIDERS: Personal Emergency Response Attendant; ADMIT Internal Medicine
DX: J96.01 Acute respiratory failure with hypoxia (principal); G93.41 Metabolic encephalopathy; J44.1 Chronic obstructive pulmonary disease with (acute) exacerbation; J90 Pleural effusion, not elsewhere classified; C64.9 Malignant neoplasm of unspecified kidney, except renal pelvis; C78.00 Secondary malignant neoplasm of unspecified lung; C79.51 Secondary malignant neoplasm of bone; D64.9 Anemia, unspecified; J84.10 Pulmonary fibrosis, unspecified; Z96.643 Presence of artificial hip joint, bilateral; Z66 Do not resuscitate; Z20.822 Contact with and (suspected) exposure to COVID-19; N18.32 Chronic kidney disease, stage 3b; R53.81 Other malaise; I12.9 Hypertensive chronic kidney disease with stage 1 through stage 4 chronic kidney disease, or unspecified chronic kidney disease; G47.33 Obstructive sleep apnea (adult) (pediatric); C67.9 Malignant neoplasm of bladder, unspecified; Z88.6 Allergy status to analgesic agent; Z88.0 Allergy status to penicillin; Z88.8 Allergy status to other drugs, medicaments and biological substances; Z85.118 Personal history of other malignant neoplasm of bronchus and lung; Z90.5 Acquired absence of kidney; Z87.891 Personal history of nicotine dependence; Z85.528 Personal history of other malignant neoplasm of kidney; Z85.830 Personal history of malignant neoplasm of bone; Z90.6 Acquired absence of other parts of urinary tract; Z23 Encounter for immunization; Z79.899 Other long term (current) drug therapy
CPT/HCPCS: J1100; J1644; J1956; J2919; J7030